=== PATIENT | female | born 1950 ===

== ENCOUNTER 2021-09-03 13:58 | Inpatient (IN) | payer OTHER ==
[~2021-09-03] VITALS: Ht 157.5 cm; Wt 88.0 kg
[2021-09-10] MEDS ORDERED: CHILDREN'S ASPI81 MG PO (13:56)
[2021-09-10] MEDS ORDERED: HYDROCHLOROTHIA25 MG PO (13:57)
[2021-09-10] MEDS ORDERED: LEXAPRO5 MG PO (13:57)
[2021-09-10] MEDS ORDERED: ATORVASTATIN CA40 MG PO (13:58)
[2021-09-10] MEDS ORDERED: ZESTRIL40 M1 PO (13:58)
[2021-09-10] MEDS ORDERED: AMLODIPINE PO (13:59)
[2021-09-10] MEDS ORDERED: PEPCI PO (13:59)
[2021-09-26] MEDS ORDERED: CYCLOBENZAPRINE10 MG (08:00)
[2021-09-26] MEDS ORDERED: FAMOTIDINE40 MG (08:00)
[2021-09-26] MEDS ORDERED: AMLODIPINE BESYL5 MG (08:00)
[2021-09-26] MEDS ORDERED: VITAMIN D3250 MCG (08:01)
[2021-09-26] MEDS ORDERED: MECLIZINE HCL25 MG (08:01)
== END 2021-09-27 10:06 | disposition home or self-care (01) | DRG 735 ==
LOC: OB/GYN 09-12 10:00 → O/R 09-26 05:25 → OB/GYN 09-26 14:50
PROVIDERS: ADMIT Obstetrics & Gynecology Gynecologic Oncology; ATTEND Obstetrics & Gynecology Gynecologic Oncology
PROC: 0UT94ZZ Resection of Uterus, Percutaneous Endoscopic Approach (ICD-10-PCS; 2021-09-26)
PROC: 0UN74ZZ Release Bilateral Fallopian Tubes, Percutaneous Endoscopic Approach (ICD-10-PCS; 2021-09-26)
PROC: 0UT24ZZ Resection of Bilateral Ovaries, Percutaneous Endoscopic Approach (ICD-10-PCS; 2021-09-26)
PROC: 0UT74ZZ Resection of Bilateral Fallopian Tubes, Percutaneous Endoscopic Approach (ICD-10-PCS; 2021-09-26)
PROC: 07TC4ZZ Resection of Pelvis Lymphatic, Percutaneous Endoscopic Approach (ICD-10-PCS; principal; 2021-09-26 08:00)
DX: N83.291 Other ovarian cyst, right side (principal); N83.292 Other ovarian cyst, left side; N85.01 Benign endometrial hyperplasia; N72 Inflammatory disease of cervix uteri; Z20.822 Contact with and (suspected) exposure to COVID-19